=== PATIENT | male | born 1960 | race Caucasian/White ===

== ENCOUNTER 2022-02-03 21:56 | Emergency (ER) | payer OTHER ==
[~2022-02-03] VITALS: Ht 182.9 cm; Wt 86.2 kg
--- NOTE | 2022-02-03 22:43 | NUR ---
BIBS . TO ER BED 10.AAOX4. NOT IN RESP DISTRESS. AMBUALTORY. R SHOULDER PAIN W/ NOTED SLIGHT DEFORMITY. PT REPORTS FEELING "POPPING" AFTER HE REACH ABOVE HIS HEAD. PTHAS A R SHOULDER REPLACEMENT 6 MONYHS AGO. PAIN 10/10, LIMITED ROM. AWAITING MD FOR EVAL. XRAY ORDER PLACED
--- NOTE | 2022-02-03 22:49 | NUR ---
XRAY AT BEDSIDE
[2022-02-03] MEDS ORDERED: IBUP-1957 PO (23:50)
[2022-02-04] MEDS ORDERED: oxyCODONE/APAP (5/325 MG) 1 UDTAB TABLET PO ONE
[2022-02-04] MEDS ORDERED: IBUPROFEN 400 MG TABLET PO ONE
--- NOTE | 2022-02-04 00:18 | NUR ---
Patient discharged to home in stable condition. Written and verbal after care instructions given. Patient verbalizes understanding of instruction.
[2022-02-04 00:25] VITALS: BP 125/96
== END 2022-02-04 00:26 | disposition home or self-care (01) ==
LOC: ER 22:07
DX: M25.511 Pain in right shoulder (principal); Z79.1 Long term (current) use of non-steroidal anti-inflammatories (NSAID)
CPT/HCPCS: 73030-TC